=== PATIENT | male | born 1955 | race Caucasian/White ===

== ENCOUNTER 2024-08-26 02:38 | Outpatient (CLI) | payer MEDICARE, MEDICAID, SELFPAY ==
[2024-08-26 10:39] LABS: Abs Immature Grans 0.08 10^3/uL (0.0-0.06); Absolute Basophil Count 0.14 10^3/uL (0.0-0.2); Absolute Lymphocyte Count 3.56 10^3/uL (1.2-3.4); Absolute Monocyte Count 1.41 10^3/uL (0.1-0.8); Basophils % 1.1 %; Eosinophils % 1.5 %; HCT 35.6 % (40.0-50.0); HGB 11.8 g/dL (13.5-17.5); Immature Grans % 0.6 %; Lymphocytes % 28.8 %; MCH 29.1 pg (27.0-33.0); MCHC 33.1 % (32.0-36.0); MCV 88 fL (80-95); MPV 8.6 fL (8.0-11.0); Monocytes % 11.4 %; Neutrophils % 56.6 %; Platelet Count 358 10^3/uL (130-400); RBC 4.05 10^6/uL (4.36-5.78); RDW 15.1 % (11.8-14.1); RDW-SD 48.2 fL; WBC 12.35 10^3/uL (4.4-10.8)
[2024-08-26 10:49] LABS: Absolute Eosinophil Count 0.19 10^3/uL (0.0-0.7); Absolute Neutrophil Count 6.99 10^3/uL (1.2-6.7)
[2024-08-26 11:02] LABS: ALT 52 U/L (16-63); AST 25 U/L (15-37); Albumin 3.4 g/dL (3.4-5.0); Alkaline Phosphatase 99 U/L (46-116); Anion Gap 2.6 mmol/L (3-11); BUN 11 mg/dL (7-18); Bilirubin, Total 0.4 mg/dL (0.2-1.0); CO2 32.4 mmol/L (21.0-32.0); CREATININE 0.6 mg/dL (0.70-1.30); Calcium 9.2 mg/dL (8.5-10.1); Chloride 100 mmol/L (98-107); Estimated GFR 105.15 (mL/min/1.73m2); Glucose 96 mg/dL (74-106); Magnesium 1.7 mg/dL (1.8-2.4); Potassium 3.8 mmol/L (3.5-5.1); Sodium 135 mmol/L (136-145)
== END 2024-08-26 02:39 | disposition home or self-care (01) ==
LOC: LBO 02:38
PROVIDERS: Visit Provider Nurse Practitioner Family
DX: C34.11 Malignant neoplasm of upper lobe, right bronchus or lung (principal)
CPT/HCPCS: 36415; 80053; 83735; 85025

== ENCOUNTER 2024-09-16 03:34 | Outpatient (CLI) | payer MEDICARE, SELFPAY ==
[2024-09-16 07:49] LABS: Abs Immature Grans 0.03 10^3/uL (0.0-0.06); HCT 36.1 % (40.0-50.0); HGB 11.7 g/dL (13.5-17.5); MCH 29.4 pg (27.0-33.0); MCHC 32.4 % (32.0-36.0); MCV 91 fL (80-95); MPV 8.3 fL (8.0-11.0); Platelet Count 264 10^3/uL (130-400); RBC 3.98 10^6/uL (4.36-5.78); RDW 17.4 % (11.8-14.1); RDW-SD 57.1 fL; WBC 8.01 10^3/uL (4.4-10.8)
[2024-09-16 08:07] LABS: ALT 78 U/L (16-63); AST 49 U/L (15-37); Albumin 3.7 g/dL (3.4-5.0); Alkaline Phosphatase 117 U/L (46-116); Anion Gap 6.2 mmol/L (3-11); BUN 9 mg/dL (7-18); Bilirubin, Total 0.4 mg/dL (0.2-1.0); CO2 31.8 mmol/L (21.0-32.0); CREATININE 0.5 mg/dL (0.70-1.30); Calcium 9.1 mg/dL (8.5-10.1); Chloride 101 mmol/L (98-107); Glucose 100 mg/dL (74-106); Magnesium 1.8 mg/dL (1.8-2.4); Potassium 4.2 mmol/L (3.5-5.1); Sodium 139 mmol/L (136-145); Total Protein 7.6 g/dL (6.4-8.2)
[2024-09-16 08:26] LABS: Absolute Basophil Count 0.08 10^3/uL (0.0-0.2); Absolute Eosinophil Count 0.32 10^3/uL (0.0-0.7); Absolute Lymphocyte Count 1.76 10^3/uL (1.2-3.4); Absolute Monocyte Count 1.04 10^3/uL (0.1-0.8); Absolute Neutrophil Count 4.81 10^3/uL (1.2-6.7); Atypical Lymphocytes % 3 %; Diff Comment Manual Differential; RBC Morphology Normal
== END 2024-09-16 03:35 | disposition home or self-care (01) ==
LOC: LBO 03:34
PROVIDERS: Visit Provider Nurse Practitioner Family
DX: C34.11 Malignant neoplasm of upper lobe, right bronchus or lung (principal)
CPT/HCPCS: 36415; 80053; 83735; 85025

== ENCOUNTER 2024-10-01 19:26 | Outpatient (REF) | payer MEDICARE, SELFPAY | END 2024-10-01 19:27 | disposition home or self-care (01) | LOC: LBN 19:26 | PROVIDERS: Student in an Organized Health Care Education/Training Program; Visit Provider Nurse Practitioner Family | DX: R91.8 Other nonspecific abnormal finding of lung field (principal) | CPT/HCPCS: 87116; 87206 ==

== ENCOUNTER 2024-10-02 10:26 | Outpatient (REF) | payer MEDICARE, SELFPAY | END 2024-10-02 10:27 | disposition home or self-care (01) | LOC: LBN 10:26 | PROVIDERS: Student in an Organized Health Care Education/Training Program; Visit Provider Nurse Practitioner Family | DX: R91.8 Other nonspecific abnormal finding of lung field (principal) | CPT/HCPCS: 87116; 87206 ==

== ENCOUNTER 2024-10-06 03:38 | Outpatient (CLI) | payer MEDICARE, SELFPAY ==
[2024-10-06 08:41] LABS: Abs Immature Grans 0.01 10^3/uL (0.0-0.06); HCT 30.7 % (40.0-50.0); HGB 10.4 g/dL (13.5-17.5); Immature Grans % 0.3 %; MCH 31.8 pg (27.0-33.0); MCHC 33.9 % (32.0-36.0); MCV 94 fL (80-95); MPV 7.8 fL (8.0-11.0); Platelet Count 262 10^3/uL (130-400); RBC 3.27 10^6/uL (4.36-5.78); RDW 20.1 % (11.8-14.1); RDW-SD 69.5 fL; WBC 3.05 10^3/uL (4.4-10.8)
[2024-10-06 09:03] LABS: Anisocytosis 2+
[2024-10-06 09:06] LABS: ALT 65 U/L (16-63); AST 42 U/L (15-37); Albumin 3.6 g/dL (3.4-5.0); Alkaline Phosphatase 82 U/L (46-116); Anion Gap 6.8 mmol/L (3-11); BUN 7 mg/dL (7-18); Bilirubin, Total 0.4 mg/dL (0.2-1.0); CO2 32.2 mmol/L (21.0-32.0); Calcium 9.2 mg/dL (8.5-10.1); Chloride 100 mmol/L (98-107); Estimated GFR 118.84 (mL/min/1.73m2); Glucose 116 mg/dL (74-106); Magnesium 1.8 mg/dL (1.8-2.4); Potassium 3.7 mmol/L (3.5-5.1); Sodium 139 mmol/L (136-145); Total Protein 7.2 g/dL (6.4-8.2)
== END 2024-10-06 03:39 | disposition home or self-care (01) ==
LOC: LBO 03:38
PROVIDERS: Visit Provider Nurse Practitioner Family
DX: C34.11 Malignant neoplasm of upper lobe, right bronchus or lung (principal)
CPT/HCPCS: 36415; 80053; 83735; 85025

== ENCOUNTER 2024-10-06 12:36 | Outpatient (REF) | payer MEDICARE, SELFPAY | END 2024-10-06 12:37 | disposition home or self-care (01) | LOC: LBN 12:36 | PROVIDERS: Student in an Organized Health Care Education/Training Program; Visit Provider Nurse Practitioner Family | DX: R91.8 Other nonspecific abnormal finding of lung field (principal) | CPT/HCPCS: 87116; 87206 ==

== ENCOUNTER 2024-10-08 13:47 | Emergency (ER) | payer MEDICARE, MEDICAID, SELFPAY ==
--- NOTE | 2024-10-08 13:30 | RT.EKG_ITS ---
APPROVED REPORT Exam: Resting ECG Reason for Exam: Chest Pressure Patient Location: E HR:111 bpm ECG Measurements Heart Rate 111 AXIS WV 217 P 57 QRSd 91 QRS 61 QT 313 T 62 QTc 426 Conclusion Sinus tachycardia [address] BLOCK NO STEMI
[2024-10-08 13:43] VITALS: BP 134/84; PULSE 116; RESP 16; TEMP 36.8; O2SAT 98
--- NOTE | 2024-10-08 14:21 | W.ED.GENAD ---
Discharge Plan Disposition Patient Disposition: Home Condition: Good Discharge Details Clinical Impression: Contusion of right shoulder Primary Care Provider: Unknown,Unknown ED Provider: Kristi Wick Discharge Instructions Instructions: Acute Pain, Adult (DC) Additional Instructions: As we discussed, your x-ray is reassuring here today. I am worried about how many flights of stairs you have to go up. I encourage you to really take your time and catch her breath. I have made a referral to palliative care to see if they can assist you with any of your symptoms while you continue with your chemo and radiation. Please continue to follow-up with your oncology team as previously recommended. If you develop any new or worsening symptoms please seek care urgently once again. Follow-up with primary care in 2 weeks for reevaluation. HPI General Date/Time Provider Initiated Documentation: 10/08/24 14:21. Limitations to Documentation: no limitations. Information obtained by: patient and RN notes reviewed. History of Present Illness 69 year old M presents to the emergency department with the chief complaint of Right shoulder pain after fall, also struck right wrist and right knee, described as mild, Quality is described as aching, and is localized to the right and upper extremity. Patient reports no radiation. Patient started experiencing this minute(s) and it has been now resolved. Immobilization improves symptom(s), Movement worsens symptoms . Patient notes no other symptoms.. Patient did receive the following treatments prior to arrival, none General Stated Complaint: Fall/Non TraumaCriteria MIKAELA: 3 Review of Systems Constitutional Constitutional: Reports as per HPI, Denies chills, Denies fever(s), Denies headache(s) and Denies weakness ENT Ears, Nose, Mouth, and Throat: Denies headache(s) Cardiovascular Cardiovascular: Reports as per HPI, Denies chest pain and Reports dyspnea (Chronic associated with small cell lung cancer) Respiratory Respiratory: Reports as per HPI and Reports dyspnea (Chronic associated with small cell lung cancer) Musculoskeletal Musculoskeletal: Reports as per HPI and Denies tingling Integumentary/Breasts Skin/Breast: Reports as per HPI, Denies rash and Denies wounds Neurologic Neurologic: Reports as per HPI, Denies headache(s), Denies tingling, Denies paresthesias and Denies weakness Exam Const General: cooperative, comfortable, no acute distress, well developed, well groomed and ill appearing chronically Nutritional Appearance: average body habitus and well nourished Orientation: alert and awake [facility] Head: normal to inspection, normocephalic and atraumatic Neck Neck: normal visual inspection and full ROM Chest Chest: normal inspection of the chest, normal palpation of entire chest wall, no crepitus and no tenderness Resp Effort & Inspection: normal respiratory effort, able to speak in complete sentences and no respiratory distress Auscultation: clear to auscultation bilaterally Cardio Rate: regular rate Rhythm: regular rhythm Heart Sounds: S1 normal and S2 normal GI Inspection: normal to inspection Palpation: soft and nontender Back/Spine/Pelvis Cervical Spine: normal cervical lordosis, cervical ROM normal and No cervical spinal tenderness Pelvis: no pain with anterior-posterior compression and no pain with lateral compression Skin General skin exam: no rashes or lesions noted Lesions: no lesions Rashes: no rashes Trauma: no lacerations or abrasions Neuro General: patient alert and patient awake Cognition: normal cognition Speech: speech normal Motor: muscle tone normal throughout Sensory Exam: no sensory deficits noted Extrem Shoulder/upper arm images:  1. Area of maximal discomfort over the right AC joint. He has 2+ distal pulses. Full range of motion of the elbow, wrist, hand. As indicates the ulnar side of the right wrist is area of contusion but no continued discomfort, swelling or limitation range of motion. 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 No pain with range of motion of the elbow. He has negative speeds sign. No pain elsewhere about the shoulder. No ecchymosis or discoloration. Sensation is intact over the deltoid. Knee images:  1. Indicates this area is where he struck when he fell. He has 2+ distal pulses. Full range of motion of the knee. No ecchymosis, erythema, effusion or soft tissue swelling. Ligamentously intact. No continued pain, no pain with palpation. Psych Appearance: grossly normal and well kempt Mental Status: mental status grossly normal Speech and Movement: speech and movement normal Course Vital Signs Vital signs: Vital Signs Temperature 36.8 C 10/08/24 13:43 Pulse 116 H 10/08/24 13:43 Respiratory Rate 16 10/08/24 13:43 Blood Pressure 134/84 10/08/24 13:43 Pulse Oximetry 98 10/08/24 13:43 Temperature 36.8 C 10/08/24 13:43 Temperature Source Oral 10/08/24 13:43 Pulse 116 H 10/08/24 13:43 Respiratory Rate 16 10/08/24 13:43 Blood Pressure 134/84 10/08/24 13:43 Pulse Oximetry 98 10/08/24 13:43 Oxygen Delivery Method Room Air 10/08/24 13:43 Oxygen Flow Rate 0 10/08/24 13:43 Medical Decision Making Patient is a pleasant 69-year-old male past medical history significant for small cell lung cancer, currently undergoing chemo and radiation, presenting with chief complaint of right shoulder pain, wrist pain and knee pain after fall. He reports that he was coming down 3 flights of stairs exiting his apartment when he became slightly short of breath causing him to lose his footing and fall. States that he misstepped falling down 1 step and landing onto the next level. He denies striking his head, no loss of consciousness. Remembers the event. No increasing shortness of breath compared to his baseline. Denies any chest pain. Denies any abdominal pain, nausea or vomiting. No incontinence. Denies striking his back or any continued back pain. Was able to ambulate after the incident. On exam, patient appears chronically unwell but no acute decompensation is appreciated. No signs of cranial trauma. No neck pain, back pain. No change in chest pain with palpation. Patient does report that he would be using his nebulizer normally right now, will give this to him. He states that he does become short of breath associated with the cancer and current treatments and finds this greatly beneficial. He has no pelvic instability. No saddle paresthesias. He does not have any evidence of trauma to the wrist or right knee, full range of motion with no pain with palpation or movement. However, he does have discomfort at the AC joint of the right shoulder. Again, no evidence to suggest objective trauma, no discoloration or swelling. Will obtain an x-ray of this. Patient and I also discussed palliative care referral. X-ray of the patient's right shoulder was reviewed by radiology, no acute fracture or dislocation. Patient is feeling significantly improved after the DuoNeb. He reports that this has been his baseline breathing for some time and he finds that the nebulizers are greatly beneficial. I am concerned about him living alone on the third floor, particularly given his overall weakness and shortness of breath associated with all small cell lung cancer as well as his continued cancer therapies. He reports that he will go slow, uses neighbor to help him. He again, reiterates that there is no acute change in this no concern at this point for acute ACS, PE, dissection to cause any of his shortness of breath. This sounds to be more of a chronic issue that is unchanged from baseline. I did encourage that he continue to discuss this with his oncology team. Referral for palliative care was also placed. Return precautions were discussed. All his questions and concerns were addressed and patient is in agreement with this plan. PFSH All Active Problems (Updated 10/08/24 @ 16:26 by GRAEME Hendrix) Contusion of right shoulder (Acute) Social History Smoking risk assessment performed?: No
--- NOTE | 2024-10-08 14:29 | DI.RAD_ITS ---
Exam(s) XR SHOULDER RT COMPLETE 2+V EXAM: XR SHOULDER RT COMPLETE 2+V CLINICAL HISTORY: fall, anterior pain. TECHNIQUE: 2D digital imaging was performed. COMPARISON: No exams were available for comparison FINDINGS: Five views. No evidence of fracture or dislocation no abnormal soft tissue calcifications. Subacromial space is not diminished. No obvious degenerative changes in the glenohumeral joint. Mild changes in the AC joint. No clavicle fracture. Coracoid process is intact. No adjacent rib fractures. IMPRESSION: No acute osseous findings in the right shoulder. DATA REPOSITORY: RADIATION DOSE DELIVERED:
[2024-10-08] MEDS: Albuterol/Ipratropium 3 ML UPD VIAL UPD (14:58)
[2024-10-08 16:42] VITALS: BP 163/112; PULSE 114; TEMP 37; O2SAT 93
[2024-10-08 16:44] VITALS: BP 134/84; PULSE 116; RESP 16; TEMP 36.8; O2SAT 98
== END 2024-10-08 16:45 | disposition home or self-care (01) ==
PROVIDERS: Emergency Provider Physician Assistant
DX: S40.011A Contusion of right shoulder, initial encounter (principal); W10.8XXA Fall (on) (from) other stairs and steps, initial encounter; R06.02 Shortness of breath; Z85.118 Personal history of other malignant neoplasm of bronchus and lung
CPT/HCPCS: 99283 ×2; 94640; 93005; 73030; 93010; J7620

== ENCOUNTER 2024-10-27 03:53 | Outpatient (CLI) | payer MEDICARE, MEDICAID, SELFPAY ==
[2024-10-27 07:45] LABS: Abs Immature Grans 0.06 10^3/uL (0.0-0.06); HCT 32.7 % (40.0-50.0); HGB 10.7 g/dL (13.5-17.5); Immature Grans % 1.4 %; MCH 31.6 pg (27.0-33.0); MCHC 32.7 % (32.0-36.0); MCV 97 fL (80-95); MPV 7.7 fL (8.0-11.0); Platelet Count 392 10^3/uL (130-400); RBC 3.39 10^6/uL (4.36-5.78); RDW 18.1 % (11.8-14.1); RDW-SD 64.0 fL; WBC 4.15 10^3/uL (4.4-10.8)
[2024-10-27 08:02] LABS: ALT 35 U/L (16-63); AST 20 U/L (15-37); Albumin 3.5 g/dL (3.4-5.0); Alkaline Phosphatase 70 U/L (46-116); Anion Gap 9.3 mmol/L (3-11); BUN 9 mg/dL (7-18); Bilirubin, Total 0.2 mg/dL (0.2-1.0); CO2 30.7 mmol/L (21.0-32.0); Calcium 9.3 mg/dL (8.5-10.1); Chloride 99 mmol/L (98-107); Estimated GFR 105.15 (mL/min/1.73m2); Glucose 97 mg/dL (74-106); Magnesium 1.7 mg/dL (1.8-2.4); Potassium 3.6 mmol/L (3.5-5.1); Sodium 139 mmol/L (136-145); Total Protein 7.2 g/dL (6.4-8.2)
== END 2024-10-27 03:54 | disposition home or self-care (01) ==
LOC: LBO 03:53
PROVIDERS: Visit Provider Nurse Practitioner Family
DX: C34.11 Malignant neoplasm of upper lobe, right bronchus or lung (principal)
CPT/HCPCS: 36415; 80053; 83735; 85025

== ENCOUNTER 2024-10-27 09:07 | Emergency (ER) | payer MEDICARE, MEDICAID, SELFPAY ==
[2024-10-27 09:08] VITALS: BP 172/101; PULSE 106; RESP 16; TEMP 36.9; O2SAT 96
[2024-10-27 09:19] VITALS: BP 172/101; PULSE 106; RESP 16; TEMP 36.9; O2SAT 96
--- NOTE | 2024-10-27 09:25 | DI.CT_ITS ---
Exam(s) CT ABDOMEN PELVIS W EXAM: CT ABDOMEN PELVIS W xa CLINICAL HISTORY: upper abdominal pain, n/v. TECHNIQUE: Imaging Protocol: Axial computed tomography images with coronal and sagittal reformatted images were created and reviewed CONTRAST MATERIAL: Intravenous: Omnipaque-350 100cc Oral: None COMPARISON: No exams were available for comparison FINDINGS: VISUALIZED LUNG BASES: Mild increased markings in the left lower lobe posterior basal segment noted. There are no pleural effusions.. ABDOMEN: There is no ascites. LIVER: There is a small benign-appearing cyst in the right hepatic lobe measuring 8 mm. No other significant focal findings in the liver. No steatosis. No dilated intrahepatic ducts. GALLBLADDER/BILIARY: No obvious gallbladder pathology. CBD is not dilated. PANCREAS: No evidence of pancreatic mass nor dilatation of the pancreatic duct. SPLEEN: Spleen is not enlarged. No obvious intrasplenic lesions. Splenic and portal veins are patent. ADRENALS: There are no significant adrenal masses. KIDNEYS:No cysts evident. No solid renal masses. No calculi nor hydronephrosis.. ABDOMINAL AORTA: Calcified but not enlarged. Iliac arteries also calcified but not enlarged. LYMPH NODES:There is no retroperitoneal nor paraaortic adenopathy. ABDOMINAL WALL: No evidence of anterior abdominal wall hernia. Density at the level the right internal inguinal ring noted which may be related to prior inguinal hernia repair. Similar finding is not seen on the opposite-left side. GI: Abundant fecal material in the colon. PELVIS: GI: No evidence of appendicitis.Redundant sigmoid. No obvious diverticulitis. LYMPH NODES: There is no intrapelvic nor inguinal adenopathy. REPRODUCTIVE: Mildly enlarged prostate gland which indents the bladder base. URINARY BLADDER: Bladder wall is uniformly thickened probably related to chronic outlet obstruction or chronic cystitis. OSSEOUS: No fractures and no significant osseous lesions. IMPRESSION: 1. There is subtle infiltrate in the left lower lobe posterior basal segment. Tree in bud-type. No associated pleural effusion. 2. There is abundant fecal material noted throughout the colon-probable constipation. Also fecal filled redundant sigmoid evident. Small bowel loop diameters slightly prominent, probably related to the constipation. 3. Moderately enlarged prostate gland and uniform thickening of the urinary bladder wall. There is moderate distension of the urinary bladder. 4. Abnormal density at the level the right inguinal ring which is possibly related to prior inguinal hernia surgery. Findings called by myself to ER physician 10/27/2024 at 10:20 a.m. RADIATION DOSE DELIVERED: 334.09mGy.cm Total DLP DATA REPOSITORY: All CT scans at this facility are submitted to the National Radiology Data Registry (NRDR) Dose Index Registry (DIR) with the [employer] (A[employer]). RADIATION OPTIMIZATION: All CT scans at this facility use at least one of these dose optimization techniques: automated exposure control; mA and/or kV adjustment per patient size (includes targeted exams where dose is matched to clinical indication); or iterative reconstruction.
--- NOTE | 2024-10-27 09:26 | RT.EKG_ITS ---
APPROVED REPORT Exam: Resting ECG Reason for Exam: chest qtc Patient Location: E HR:83 bpm ECG Measurements Heart Rate 83 AXIS UT 246 P 62 QRSd 105 QRS 19 QT 360 T 57 QTc 424 Conclusion Sinus rhythm...normal P axis, V-rate 60- 99 Prolonged UT interval...UT >220, V-rate 50- 90 Consider anteroseptal infarct...Q >30mS, dimin R, V1-V2
--- NOTE | 2024-10-27 09:27 | W.ED.GENAD ---
Discharge Plan Disposition Patient Disposition: Home Condition: Stable Discharge Details Clinical Impression: Abdominal pain, Constipation, Lung infiltrate Primary Care Provider: Unknown,Unknown ED Provider: Dajuan Shultz Home Meds and New Rx's Prescriptions: New doxycycline hyclate 100 mg tablet 100 mg PO BID Qty: 14 0RF Continued multivitamin [Daily Multi-Vitamin] Tablet 1 tab PO DAILY quetiapine 25 mg tablet 25 mg PO DAILY carvedilol 12.5 mg tablet 12.5 mg PO BID Rx Instructions: must administer with a meal/food ipratropium-albuterol 0.5 mg-3 mg(2.5 mg base)/3 mL solution for nebulization 3 ml inhalation Q6H PRN prochlorperazine maleate [Compazine] 10 mg tablet 10 mg PO Q6H PRN lorazepam 0.5 mg tablet 0.5 mg PO DAILY PRN amlodipine 10 mg tablet 10 mg PO DAILY hydroxyzine HCl 25 mg tablet 25 mg PO TID PRN albuterol sulfate [Ventolin HFA] 90 mcg/actuation HFA aerosol inhaler 2 puff inhalation Q4H PRN food supplemt, lactose-reduced Liquid 1 ml PO BID varenicline tartrate [Chantix] 1 mg tablet 1 mg PO BID Trelegy Ellipta 200-62.5-25 mcg blister with device 1 inh inhalation DAILY prednisone 5 mg tablet 5 mg PO DAILY budesonide-formoterol [Symbicort] 160-4.5 mcg/actuation HFA aerosol inhaler 1 inh inhalation .COMPLEX Rx Instructions: 1 inh inhaled take by mouth 1-2 puffs every four hours, up to a maximum of 12 puffs daily (not to exceed more than 12 puffs in 24 hours), as needed for shortness of breath. Per URIAH guidelines.; Ensure Plus 0.05 gram- 1.5 kcal/mL liquid 237 ml PO BID Rx Instructions: Take 237 mLs by mouth 2 times daily. Chocolate Ensure Plus-2 bottles per day diazepam [Valium] 5 mg tablet 5 mg PO ONCE PRN ondansetron 8 mg tablet,disintegrating 8 mg PO ONCE PRN Discharge Instructions Additional Instructions: Your CAT scan showed you have a modest stool in your bowels. I would recommend taking daily stool softener such as docusate and also taking MiraLAX daily. Your CT also showed some evidence of a possible lung infection so you are being put on doxycycline. If you are not improving within a week follow-up with your primary care provider. If you feel significantly more ill or have new symptoms such as persistent vomiting return to the emergency department for reevaluation HPI General Mode of arrival: EMS. Date/Time Provider Initiated Documentation: 10/27/24 09:15. Limitations to Documentation: no limitations. Information obtained by: patient. History of Present Illness 69 year old M presents to the emergency department with the chief complaint of abdominal pain, described as moderate, Quality is described as sharp, and is localized to the abdomen. Patient reports no radiation. and it has been constant. No relieving factors improve symptom(s), No exacerbating factors reported . Patient notes nausea/vomiting; denies chest pain, fever/chills and shortness of breath. Patient did receive the following treatments prior to arrival, none Related Data Home Medications ?Medication ?Instructions ?Recorded ?Confirmed albuterol sulfate 90 mcg/actuation 2 puff inhalation Q4H PRN 10/14/24 10/27/24 aerosol inhaler (Ventolin HFA) amlodipine 10 mg tablet 10 mg PO DAILY 10/14/24 10/27/24 carvedilol 12.5 mg tablet 12.5 mg PO BID 10/14/24 10/27/24 fluticasone fur. 200 mcg-umeclid 1 inh inhalation DAILY 10/14/24 10/27/24 62.5 mcg-vilant 25 mcg inhalat.powder (Trelegy Ellipta) food supplemt, lactose-reduced 1 ml PO BID 10/14/24 10/27/24 hydroxyzine HCl 25 mg tablet 25 mg PO TID PRN 10/14/24 10/27/24 ipratropium 0.5 mg-albuterol 3 mg 3 ml inhalation Q6H PRN 10/14/24 10/27/24 (2.5 mg base)/3 mL nebulization soln lorazepam 0.5 mg tablet 0.5 mg PO DAILY PRN 10/14/24 10/27/24 multivitamin (Daily Multi-Vitamin 1 tab PO DAILY 10/14/24 10/27/24 tablet) prednisone 5 mg tablet 5 mg PO DAILY 10/14/24 10/27/24 prochlorperazine maleate 10 mg 10 mg PO Q6H PRN 10/14/24 10/27/24 tablet (Compazine) quetiapine 25 mg tablet 25 mg PO DAILY 10/14/24 10/27/24 varenicline tartrate 1 mg tablet 1 mg PO BID 10/14/24 10/27/24 (Chantix) budesonide-formoterol HFA 160 1 inh inhalation .COMPLEX 10/17/24 10/27/24 mcg-4.5 mcg/actuation aerosol inhaler (Symbicort) diazepam 5 mg tablet (Valium) 5 mg PO ONCE PRN 10/17/24 10/27/24 food supplemt, lactose-reduced 237 ml PO BID 10/17/24 10/27/24 0.05 gram-1.5 kcal/mL oral liquid (Ensure Plus) doxycycline hyclate 100 mg tablet 100 mg PO BID #14 tabs 10/27/24 ondansetron 8 mg disintegrating 8 mg PO ONCE PRN 10/27/24 10/27/24 tablet Previous Rx's ?Medication ?Instructions ?Recorded doxycycline hyclate 100 mg tablet 100 mg PO BID #14 tabs 10/27/24 Allergies Allergy/AdvReac Type Severity Reaction Status Date / Time Penicillins Allergy Severe Anaphylaxis Verified 10/27/24 09:13 Sulfa (Sulfonamide Allergy Severe Anaphylaxis Verified 10/27/24 09:13 Antibiotics) lactose Allergy NVD Verified 10/27/24 09:13 General Stated Complaint: Abd Prob MIKAELA: 3 Review of Systems All systems reviewed & are unremarkable except as noted in HPI and below Constitutional Constitutional: Denies chills, Denies fever(s) and Denies weakness Cardiovascular Cardiovascular: Denies chest pain and Denies dyspnea Respiratory Respiratory: Denies cough and Denies dyspnea Gastrointestinal Gastrointestinal: Reports abdominal pain, Reports nausea and Reports vomiting Neurologic Neurologic: Denies weakness Exam Const General: no acute distress Orientation: alert HENMT Head: normal to inspection Ears: external ears normal General nose exam: external nose normal Mouth: moist mucous membranes Eyes General: appearance normal, both eyes and all related structures Neck Neck: normal visual inspection Resp Effort & Inspection: normal respiratory effort and able to speak in complete sentences Cardio Rate: regular rate GI Palpation: soft and tender Skin General skin exam: no rashes or lesions noted Neuro General: patient alert and patient oriented x3 Extrem General: normal to inspection Psych Mental Status: mental status grossly normal Course Vital Signs Vital signs: Vital Signs Temperature 36.9 C 10/27/24 09:08 Pulse 106 H 10/27/24 09:08 Respiratory Rate 16 10/27/24 09:08 Blood Pressure 172/101 H 10/27/24 09:08 Pulse Oximetry 96 10/27/24 09:08 Temperature 36.9 C 10/27/24 09:19 Temperature Source Oral 10/27/24 09:19 Pulse 106 H 10/27/24 09:19 Respiratory Rate 16 10/27/24 09:19 Blood Pressure 172/101 H 10/27/24 09:19 Blood Pressure Position Sitting 10/27/24 09:19 Pulse Oximetry 96 10/27/24 09:19 Oxygen Delivery Method Room Air 10/27/24 09:19 Oxygen Flow Rate 0 10/27/24 09:19 Pain Level 9 10/27/24 09:19 Medical Decision Making 69-year-old male with a history of lung cancer currently getting chemotherapy, hypertension, who comes in with 2 to 3 days of abdominal pain primarily in the upper abdomen and intermittent nausea vomiting. Denies any fevers or chest pain. He is alert and oriented on arrival. His abdomen is nondistended but is tender in the left upper and right upper quadrants. Given location of pain we will check a CBC CMP and lipase and also obtain a CT abdomen pelvis to evaluate for entities such as cholecystitis versus bowel obstruction. Labs without significant findings, no significant anemia from baseline. He is feeling significantly better, CT without acute findings and the question of a left lower lobe infiltrate. He says he does have a daily cough but is not sure if it is worse than normal. No fevers. He does have a lot of stool in his bowels which I feel is likely the source of his discomfort. I am going to start him on a stool softener and a laxative. I also started him on doxycycline for the infiltrate seen on the CT. He is stable for discharge he will follow-up with his PCP in improving and return precautions given Differential Diagnosis Differential Diagnosis: Bowel obstruction, cholecystitis ECG Data Attestation: I personally reviewed and interpreted this ECG (s) as follows: Prior ECG tracings: available for review Interpretation: ekg obtained to check qtc for droperidol. sinus, rate of 83, qtc 424 no stemi PFSH All Active Problems (Updated 07/28/25 @ 10:43 by Dajuan Shultz MD) Lung infiltrate (Acute) Constipation (Acute) Abdominal pain (Acute) Other nonspecific abnormal finding of lung field (Acute) Housing insecurity (Acute) Financial insecurity (Acute) History of alcohol abuse (Acute) Hepatitis C (Chronic) Viral load > 800k July 2024 Reports partial treatment with interferon in the past COPD (chronic obstructive pulmonary disease) (Chronic) Smoker (Acute) Small cell lung cancer, right middle lobe (Acute) Dx May 2024 Contusion of right shoulder (Acute) Medical History (Updated 10/27/24 @ 10:43 by Dajuan Shultz MD) Unilateral inguinal hernia Nondependent alcohol abuse Hyponatremia Hypertension Small cell carcinoma of hilum of right lung Protein calorie malnutrition JANI (generalized anxiety disorder) Surgical History (Updated 10/14/24 @ 08:21 by Shira Leiva) History of bronchoscopy Family History (Updated 10/14/24 @ 08:22 by Shira Leiva) Father Colorectal cancer Social History (Updated 10/14/24 @ 08:24 by Shira Leiva) Smoking/Tobacco Use Status: Former Tobacco Use tobacco type: cigarettes Quit Date: 07/21/24 Pack-years: 69 Tobacco: How many years used: 45 Smoking risk assessment performed?: Yes Alcohol Intake: former Year quit: 2024 [place] [facility] [place] - was at 4 cans beer/day Drug use: Daily Substance use type: marijuana Details: marijuana edibles 4x daily for pain [place] [facility] [place] Do you feel safe at home: Yes Do you feel safe in your relationship?: Yes
[2024-10-27 09:34] LABS: Abs Immature Grans 0.08 10^3/uL (0.0-0.06); HCT 35.5 % (40.0-50.0); HGB 11.6 g/dL (13.5-17.5); Immature Grans % 1.7 %; MCH 31.6 pg (27.0-33.0); MCHC 32.7 % (32.0-36.0); MCV 97 fL (80-95); MPV 8.0 fL (8.0-11.0); Platelet Count 451 10^3/uL (130-400); RBC 3.67 10^6/uL (4.36-5.78); RDW 18.0 % (11.8-14.1); RDW-SD 64.2 fL; WBC 4.77 10^3/uL (4.4-10.8)
[2024-10-27] MEDS: Omnipaque 350 MG/ML 100 ML BTL 75 ML IJ (09:46)
[2024-10-27] MEDS: Normal Saline - Diluent 50 ML VIAL IJ (09:49)
[2024-10-27 09:56] LABS: INR 1.1 (0.9-1.1); Prothrombin Time 10.9 sec (9.1-11.1)
[2024-10-27 10:01] LABS: ALT 36 U/L (16-63); AST 21 U/L (15-37); Albumin 3.7 g/dL (3.4-5.0); Alkaline Phosphatase 73 U/L (46-116); Anion Gap 6.4 mmol/L (3-11); BUN 8 mg/dL (7-18); Bilirubin, Direct 0.1 mg/dL (0.0-0.2); Bilirubin, Total 0.2 mg/dL (0.2-1.0); CO2 33.6 mmol/L (21.0-32.0); Calcium 9.5 mg/dL (8.5-10.1); Chloride 98 mmol/L (98-107); Estimated GFR 105.15 (mL/min/1.73m2); Glucose 95 mg/dL (74-106); Lipase 30 U/L (<78); Magnesium 1.7 mg/dL (1.8-2.4); Potassium 3.4 mmol/L (3.5-5.1); Sodium 138 mmol/L (136-145); Total Protein 7.7 g/dL (6.4-8.2)
[2024-10-27 10:09] LABS: PTT Activated 25.3 sec (20.6-30.2)
[2024-10-27 10:10] VITALS: BP 158/96; PULSE 88; O2SAT 95
[2024-10-27] MEDS: Droperidol 5 MG/2 ML VIAL 2.5 MG IVP (10:20)
[2024-10-27] MEDS: Ketorolac 15 MG/ML VIAL IVP (10:21)
[2024-10-27 10:31] VITALS: BP 144/88; PULSE 94; O2SAT 90
[2024-10-27 10:34] LABS: Glucose Negative (Negative)
[2024-10-27 11:00] VITALS: BP 141/88; PULSE 84; O2SAT 92
== END 2024-10-27 11:13 | disposition home or self-care (01) ==
PROVIDERS: Emergency Provider Emergency Medicine
DX: R10.9 Unspecified abdominal pain (principal); K59.00 Constipation, unspecified; R91.8 Other nonspecific abnormal finding of lung field; R11.2 Nausea with vomiting, unspecified
CPT/HCPCS: 99285; 99284; 96374; 96375; 36415; 80053; 83690; 86850; 86900; 86901; 93005; 74177; 81003; 82248; 83735; 85025; 85610; 85730; 93010; J1790; J1885; J3490

== ENCOUNTER 2024-11-03 03:27 | Outpatient (CLI) | payer MEDICARE, MEDICAID, SELFPAY ==
[2024-11-03 07:55] LABS: Abs Immature Grans 0.04 10^3/uL (0.0-0.06); HCT 32.2 % (40.0-50.0); HGB 10.6 g/dL (13.5-17.5); Immature Grans % 0.5 %; MCH 32.1 pg (27.0-33.0); MCHC 32.9 % (32.0-36.0); MCV 98 fL (80-95); MPV 7.8 fL (8.0-11.0); Platelet Count 311 10^3/uL (130-400); RBC 3.30 10^6/uL (4.36-5.78); RDW 18.1 % (11.8-14.1); RDW-SD 65.1 fL; WBC 8.23 10^3/uL (4.4-10.8)
[2024-11-03 08:17] LABS: ALT 63 U/L (16-63); AST 54 U/L (15-37); Albumin 3.8 g/dL (3.4-5.0); Alkaline Phosphatase 73 U/L (46-116); Anion Gap 6.4 mmol/L (3-11); BUN 9 mg/dL (7-18); Bilirubin, Total 0.2 mg/dL (0.2-1.0); CO2 32.6 mmol/L (21.0-32.0); Calcium 9.2 mg/dL (8.5-10.1); Chloride 101 mmol/L (98-107); Estimated GFR 100.37 (mL/min/1.73m2); Glucose 99 mg/dL (74-106); Magnesium 1.8 mg/dL (1.8-2.4); Potassium 4.2 mmol/L (3.5-5.1); Sodium 140 mmol/L (136-145); Total Protein 7.4 g/dL (6.4-8.2)
[2024-11-03 10:36] LABS: TSH 0.65 uIU/mL (0.36-3.74)
== END 2024-11-03 03:28 | disposition home or self-care (01) ==
LOC: LBO 03:27
PROVIDERS: Nurse Practitioner Adult Health; Visit Provider Nurse Practitioner Family
DX: C34.11 Malignant neoplasm of upper lobe, right bronchus or lung (principal); Z79.899 Other long term (current) drug therapy
CPT/HCPCS: 36415; 80053; 83735; 84439; 84443; 85025

== ENCOUNTER 2024-12-02 09:58 | Outpatient (CLI) | payer MEDICARE, MEDICAID, SELFPAY ==
[2024-12-02 08:57] LABS: Abs Immature Grans 0.05 10^3/uL (0.0-0.06); HCT 37.2 % (40.0-50.0); HGB 12.3 g/dL (13.5-17.5); Immature Grans % 0.5 %; MCH 32.5 pg (27.0-33.0); MCHC 33.1 % (32.0-36.0); MCV 98 fL (80-95); MPV 8.2 fL (8.0-11.0); Platelet Count 255 10^3/uL (130-400); RBC 3.79 10^6/uL (4.36-5.78); RDW 14.5 % (11.8-14.1); RDW-SD 52.5 fL; WBC 9.75 10^3/uL (4.4-10.8)
[2024-12-02 09:33] LABS: ALT 63 U/L (16-63); AST 47 U/L (15-37); Albumin 3.7 g/dL (3.4-5.0); Alkaline Phosphatase 95 U/L (46-116); Anion Gap 7.9 mmol/L (3-11); BUN 10 mg/dL (7-18); Bilirubin, Total 0.3 mg/dL (0.2-1.0); CO2 30.1 mmol/L (21.0-32.0); Calcium 9.2 mg/dL (8.5-10.1); Chloride 101 mmol/L (98-107); Estimated GFR 105.15 (mL/min/1.73m2); Glucose 92 mg/dL (74-106); Potassium 4.1 mmol/L (3.5-5.1); Sodium 139 mmol/L (136-145); TSH 0.92 uIU/mL (0.36-3.74); Total Protein 7.8 g/dL (6.4-8.2)
== END 2024-12-02 09:59 | disposition home or self-care (01) ==
LOC: LBO 09:58
PROVIDERS: Visit Provider Nurse Practitioner Adult Health
DX: Z79.899 Other long term (current) drug therapy (principal)
CPT/HCPCS: 36415; 80053; 84439; 84443; 85025

== ENCOUNTER 2024-12-29 04:09 | Outpatient (CLI) | payer MEDICARE, MEDICAID, SELFPAY ==
[2024-12-29 08:31] LABS: Abs Immature Grans 0.03 10^3/uL (0.0-0.06); HCT 36.9 % (40.0-50.0); HGB 12.0 g/dL (13.5-17.5); Immature Grans % 0.3 %; MCH 31.5 pg (27.0-33.0); MCHC 32.5 % (32.0-36.0); MCV 97 fL (80-95); MPV 7.9 fL (8.0-11.0); Platelet Count 265 10^3/uL (130-400); RBC 3.81 10^6/uL (4.36-5.78); RDW 13.3 % (11.8-14.1); RDW-SD 47.7 fL; WBC 9.08 10^3/uL (4.4-10.8)
[2024-12-29 09:21] LABS: ALT 34 U/L (16-63); AST 26 U/L (15-37); Albumin 3.4 g/dL (3.4-5.0); Alkaline Phosphatase 77 U/L (46-116); Anion Gap 7.5 mmol/L (3-11); BUN 13 mg/dL (7-18); Bilirubin, Total 0.4 mg/dL (0.2-1.0); CO2 29.5 mmol/L (21.0-32.0); Calcium 9.4 mg/dL (8.5-10.1); Chloride 100 mmol/L (98-107); Estimated GFR 111.10 (mL/min/1.73m2); Glucose 95 mg/dL (74-106); Magnesium 2.1 mg/dL (1.8-2.4); Potassium 4.1 mmol/L (3.5-5.1); Sodium 137 mmol/L (136-145); TSH 0.79 uIU/mL (0.36-3.74); Total Protein 7.8 g/dL (6.4-8.2)
== END 2024-12-29 04:10 | disposition home or self-care (01) ==
LOC: LBO 04:09
PROVIDERS: Visit Provider Nurse Practitioner Adult Health
DX: Z79.899 Other long term (current) drug therapy (principal); C34.01 Malignant neoplasm of right main bronchus; C34.11 Malignant neoplasm of upper lobe, right bronchus or lung
CPT/HCPCS: 36415; 80053; 83735; 84439; 84443; 85025

== ENCOUNTER 2025-02-10 00:43 | Outpatient (CLI) | payer MEDICARE, MEDICAID, SELFPAY ==
[2025-02-10 09:13] LABS: Abs Immature Grans 0.03 10^3/uL (0.0-0.06); HCT 39.3 % (40.0-50.0); HGB 12.8 g/dL (13.5-17.5); Immature Grans % 0.3 %; MCH 31.1 pg (27.0-33.0); MCHC 32.6 % (32.0-36.0); MCV 96 fL (80-95); MPV 8.0 fL (8.0-11.0); Platelet Count 381 10^3/uL (130-400); RBC 4.11 10^6/uL (4.36-5.78); RDW 13.6 % (11.8-14.1); RDW-SD 48.1 fL; WBC 10.35 10^3/uL (4.4-10.8)
[2025-02-10 09:41] LABS: ALT 17 U/L (16-63); AST 13 U/L (15-37); Albumin 3.1 g/dL (3.4-5.0); Alkaline Phosphatase 90 U/L (46-116); Anion Gap 5.2 mmol/L (3-11); BUN 14 mg/dL (7-18); Bilirubin, Total 0.3 mg/dL (0.2-1.0); CO2 33.8 mmol/L (21.0-32.0); Calcium 9.0 mg/dL (8.5-10.1); Chloride 100 mmol/L (98-107); Glucose 76 mg/dL (74-106); Magnesium 2.1 mg/dL (1.8-2.4); Potassium 3.9 mmol/L (3.5-5.1); Sodium 139 mmol/L (136-145); TSH 1.09 uIU/mL (0.36-3.74); Total Protein 7.9 g/dL (6.4-8.2)
== END 2025-02-10 00:44 | disposition home or self-care (01) ==
LOC: LBO 00:43
PROVIDERS: Visit Provider Nurse Practitioner Adult Health
DX: Z79.899 Other long term (current) drug therapy (principal); C34.11 Malignant neoplasm of upper lobe, right bronchus or lung; C34.01 Malignant neoplasm of right main bronchus
CPT/HCPCS: 36415; 80053; 83735; 84439; 84443; 85025

== ENCOUNTER 2025-02-10 11:07 | Outpatient (REF) | payer MEDICARE, MEDICAID, SELFPAY | END 2025-02-10 11:08 | disposition home or self-care (01) | LOC: LBN 11:07 | PROVIDERS: Visit Provider Student in an Organized Health Care Education/Training Program | DX: R91.8 Other nonspecific abnormal finding of lung field (principal) | CPT/HCPCS: 87116; 87206 ==

== ENCOUNTER 2025-02-23 07:46 | Outpatient (CLI) | payer MEDICARE, MEDICAID, SELFPAY | END 2025-02-23 07:47 | disposition home or self-care (01) | PROVIDERS: Visit Provider Internal Medicine Pulmonary Disease | DX: J44.9 Chronic obstructive pulmonary disease, unspecified (principal); J47.9 Bronchiectasis, uncomplicated; Z51.89 Encounter for other specified aftercare | CPT/HCPCS: 94626 ==

== ENCOUNTER 2025-03-10 01:23 | Outpatient (CLI) | payer MEDICARE, MEDICAID, SELFPAY ==
[2025-03-10 09:13] LABS: Abs Immature Grans 0.04 10^3/uL (0.0-0.06); HCT 38.5 % (40.0-50.0); HGB 12.0 g/dL (13.5-17.5); Immature Grans % 0.4 %; MCH 28.9 pg (27.0-33.0); MCHC 31.2 % (32.0-36.0); MCV 93 fL (80-95); MPV 8.6 fL (8.0-11.0); Platelet Count 397 10^3/uL (130-400); RBC 4.15 10^6/uL (4.36-5.78); RDW 14.4 % (11.8-14.1); RDW-SD 48.9 fL; WBC 11.03 10^3/uL (4.4-10.8)
[2025-03-10 09:33] LABS: Magnesium 1.9 mg/dL (1.6-2.6)
[2025-03-10 09:35] LABS: ALT 12 U/L (10-49); AST 17 U/L (<34); Albumin 4.4 g/dL (3.2-5.0); Alkaline Phosphatase 76 U/L (46-116); Anion Gap 4.8 mmol/L (3-11); BUN 7 mg/dL (9-23); Bilirubin, Total 0.3 mg/dL (0.2-1.2); CO2 34.2 mmol/L (20.0-31.0); Calcium 9.5 mg/dL (8.3-10.6); Chloride 101 mmol/L (98-107); Glucose 100 mg/dL (74-106); Potassium 4.7 mmol/L (3.5-5.1); Sodium 140 mmol/L (136-145); Total Protein 7.7 g/dL (5.7-8.2)
[2025-03-10 09:37] LABS: TSH 1.66 uIU/mL (0.55-4.78)
== END 2025-03-10 01:24 | disposition home or self-care (01) ==
LOC: LBO 01:23
PROVIDERS: Visit Provider Nurse Practitioner Family
DX: Z79.899 Other long term (current) drug therapy (principal); C34.01 Malignant neoplasm of right main bronchus; C34.11 Malignant neoplasm of upper lobe, right bronchus or lung
CPT/HCPCS: 36415; 80053; 83735; 84439; 84443; 85025

== ENCOUNTER 2025-03-10 15:29 | Outpatient (REF) | payer MEDICARE, MEDICAID, SELFPAY | END 2025-03-10 15:30 | disposition home or self-care (01) | LOC: LBN 15:29 | PROVIDERS: Visit Provider Student in an Organized Health Care Education/Training Program | DX: J44.9 Chronic obstructive pulmonary disease, unspecified (principal); F17.210 Nicotine dependence, cigarettes, uncomplicated; J47.9 Bronchiectasis, uncomplicated | CPT/HCPCS: 87116; 87206 ==

== ENCOUNTER 2025-03-27 14:00 | Outpatient (RCR) | payer MEDICARE, MEDICAID, SELFPAY ==
[2025-03-27 14:05] VITALS: BP 143/76; PULSE 110; O2SAT 88
[2025-03-27 14:21] VITALS: PULSE 118; O2SAT 93
[2025-03-27 15:03] VITALS: PULSE 122
[2025-03-27 15:05] VITALS: BP 147/80; PULSE 122; O2SAT 88
[2025-03-27 15:06] VITALS: BP 131/81; PULSE 120; O2SAT 92
--- NOTE | 2025-03-27 16:05 | NUR.NOTE ---
Nursing Note: At 1405 on 03/27/25, pt. arrived for his [place] exercise session and VS were obtained prior to him starting his exercise session. VS: HR: 110; BP: 143/76; O2 Sat.: 88 percent on 2L of oxygen via nasal cannula. Pt. was only able to complete seven minutes of exercise today. Pt. stated that he's having a ...really difficult day. Pt. exercised for four minutes on the Nustep before being noted to desaturate to 83 percent and hold there. RN stopped the pt., and titrated him from 2L to 3L of oxygen via nasal cannula, after which he recovered to between 92-94 percent on 3L of oxygen via nasal cannula. Pt. decided to try another three minutes on the Nustep before being noted to be extremely short of breath again. RN stopped the pt. and had him come over to sit in the chair near the nurses' station. Pt. stated that he just needed to be done for the day, which nursing staff agreed was the best plan of care for him. At 1421 on 03/27/25, pt.'s post exercise session VS were: HR: 118; O2 Sat.: 93 percent on 3L of oxygen via nasal cannula. Pt. sat with nursing staff for the remainder of his exercise session, on the hospital's oxygen tank (at 3L/min), and had a snack and a bottle of water. Pt. was then put in a wheelchair and brought to the main lobby by this RN to wait for RCT. At 1503 on 03/27/25, pt. transferred from the wheelchair to a chair in the main lobby to wait for RCT and was noted be near syncopal. Pt. swayed from side to side as he was trying to sit down in the chair. RN assisted pt. in to the chair and asked him how he was feeling. Pt. stated that he was feeling dizzy and lightheaded. Pt. stated, I feel like I've entered a different dimension. RN then noted that pt.'s bilateral hands and arms were shaking and pt. stated, I feel sort of shaky. RN moved from the chair in the main lobby to the volunteer desk, all while keeping a visual on the pt., and called upstairs for assistance from more nursing staff, including requesting a vital sign machine, while an [employer] who was nearby also kept a visual on the pt. RN immediately returned to pt. and palpated a radial pulse at 122 bpm. Within two minutes, two other RN's arrived to assist RN with continued assessment and care of the the pt. At 1505 on 03/27/25, pt. was still feeling dizzy, lightheaded, and shaky. RT arrived to help with assessment and care of the pt. at this time. Pt. was titrated from 2L to 3L of oxygen via nasal cannula. Nursing staff attempted an orthostatic BP reading. VS: HR: 122; BP: 147/80 (sitting); O2 Sat.: 88 percent on 2L. At 1506 on 03/27/25, pt. was moving from standing to sitting, as pt. was unable to tolerate a standing BP, and was noted to be swaying from side to side while standing. VS: HR: 120; BP: 131/81 (standing-sort of); O2 Sat.: 92 percent on 3L. Decision was made to bring the pt. to the ED to be assessed. This RN, another RN, and the RT accompanied the pt. to the ED, where pt. was admitted to an ED room, and this RN gave bedside report and transferred care of the pt. to Dajuan Talley RN.
== END 2025-04-01 23:59 | disposition home or self-care (01) ==
LOC: PRC 14:00
PROVIDERS: Visit Provider Internal Medicine Pulmonary Disease
DX: J47.9 Bronchiectasis, uncomplicated (principal); J44.9 Chronic obstructive pulmonary disease, unspecified; Z51.89 Encounter for other specified aftercare
CPT/HCPCS: 94626

== ENCOUNTER 2025-03-27 15:12 | Emergency (ER) | payer MEDICARE, MEDICAID, SELFPAY ==
[2025-03-27] VITALS (40 sets, daily range): BP systolic 111–159; BP diastolic 65–107; PULSE 93–138; RESP 19–36; TEMP 35.8–36.8; O2SAT 86–97
--- NOTE | 2025-03-27 15:00 | RT.EKG_ITS ---
APPROVED REPORT Exam: Resting ECG Reason for Exam: syncope Patient Location: E HR:114 bpm ECG Measurements Heart Rate [address] 208 P 74 QRSd 95 QRS 65 QT 310 T 74 QTc 427 Conclusion Sinus tachycardia...rate> [address] interval...CT >207, V-rate 91-120 Consider anteroseptal infarct...Q >30mS, dimin R, V1-V2
--- NOTE | 2025-03-27 15:30 | DI.CT_ITS ---
Exam(s) CT CHEST PE CTA EXAM: CT CHEST PE CTA CLINICAL HISTORY: dyspnea, hypoxia, lung cancer. TECHNIQUE: Imaging Protocol: Axial CT angiography was performed with multi- slice acquisition and multi-planar and/or 3D reconstructions. Lung Computer Aided Detection (CAD) was utilized. CONTRAST MATERIAL: Intravenous: Omnipaque 350 contrast volume:75 mL COMPARISON: CT CT ABDOMEN PELVIS W from 10/27/2024 FINDINGS: Tracheobronchial tree: There is mucous plugging seen in the lower lobes. There is bronchiectasis in the lower lobes. Pulmonary parenchyma: Centrilobular emphysematous changes are present. There are patchy infiltrates seen in the lungs with a tree in bud appearance. Pulmonary Arteries: There is suboptimal opacification of the peripheral pulmonary arteries. There is no evidence of a pulmonary embolism to the segmental level. Mediastinum and Krissy: No dominant adenopathy or fluid collection. There may be mild thickening of the wall of the esophagus which may be due to underdistention but esophagitis should be considered.. Visualized thyroid gland: Unremarkable. Pleura: No effusion or pneumothorax. Heart: The heart is mildly enlarged. Coronary artery calcification is present. There is no evidence of right heart strain. No pericardial effusion. Aorta: The ascending thoracic aorta measures 4.0 x 3.9 cm. No evidence of dissection. Atherosclerotic calcification is present. Upper abdomen: Unremarkable. Soft tissues: There is mild gynecomastia. Bones: Within normal limits for the patient's age.There is a sclerotic focus in the posterior aspect of the right 4th rib. IMPRESSION: 1. There is suboptimal opacification of the pulp parole pulmonary arteries. There is no evidence of a embolus to the segmental level. 2. Which infiltrates in the lungs with a tree-in-bud appearance which can represent bronchiolitis or aspiration. 3. Question of esophageal wall thickening throughout which can be seen with underdistention or esophagitis. Please correlate clinically. 4. Sclerotic focus in the posterior aspect of the right 4th rib. While this may represent a bone island, metastatic focus cannot be excluded. Please correlate clinically. 5. The preliminary [facility] report was reviewed. RADIATION DOSE DELIVERED: 83.79mGy.cm Total DLP DATA REPOSITORY: All CT scans at this facility are submitted to the National Radiology Data Registry (NRDR) Dose Index Registry (DIR) with the [employer] (A[employer]). RADIATION OPTIMIZATION: All CT scans at this facility use at least one of these dose optimization techniques: automated exposure control; mA and/or kV adjustment per patient size (includes targeted exams where dose is matched to clinical indication); or iterative reconstruction.
[2025-03-27 15:34] LABS: BE (Venous) 2 mmol/L (-2-3); HCO3 (Venous) 28 mmol/L (23-28); O2 Sat (Venous) 95 %; TCO2 (Venous) 26 mmol/L (24-29); pCO2 (Venous) 54 mmHg (41-51); pO2 (Venous) 77 mmHg
[2025-03-27 15:35] LABS: Abs Immature Grans 0.07 10^3/uL (0.0-0.06); HCT 39.0 % (40.0-50.0); HGB 12.5 g/dL (13.5-17.5); Immature Grans % 0.4 %; MCH 29.3 pg (27.0-33.0); MCHC 32.1 % (32.0-36.0); MCV 92 fL (80-95); MPV 8.3 fL (8.0-11.0); Platelet Count 350 10^3/uL (130-400); RBC 4.26 10^6/uL (4.36-5.78); RDW 15.4 % (11.8-14.1); RDW-SD 51.0 fL; WBC 16.48 10^3/uL (4.4-10.8)
--- NOTE | 2025-03-27 15:40 | W.ED.GENAD ---
Discharge Plan Disposition Patient Disposition: Home Condition: Stable Discharge Details Clinical Impression: SOB (shortness of breath), COPD exacerbation Primary Care Provider: Unknown,Unknown ED Provider: Dajuan Shultz Home Meds and New Rx's Prescriptions: New prednisone 20 mg tablet 60 mg PO DAILY 4 Days Qty: 12 0RF doxycycline hyclate 100 mg tablet 100 mg PO BID Qty: 14 0RF Continued multivitamin [Daily Multi-Vitamin] Tablet 1 tab PO DAILY quetiapine 25 mg tablet 25 mg PO DAILY carvedilol 12.5 mg tablet 12.5 mg PO BID Rx Instructions: must administer with a meal/food ipratropium-albuterol 0.5 mg-3 mg(2.5 mg base)/3 mL solution for nebulization 3 ml inhalation Q6H PRN prochlorperazine maleate [Compazine] 10 mg tablet 10 mg PO Q6H PRN lorazepam 0.5 mg tablet 0.5 mg PO DAILY PRN amlodipine 10 mg tablet 10 mg PO DAILY hydroxyzine HCl 25 mg tablet 25 mg PO TID PRN albuterol sulfate [Ventolin HFA] 90 mcg/actuation HFA aerosol inhaler 2 puff inhalation Q4H PRN food supplemt, lactose-reduced Liquid 1 ml PO BID varenicline tartrate [Chantix] 1 mg tablet 1 mg PO BID Trelegy Ellipta 200-62.5-25 mcg blister with device 1 inh inhalation DAILY prednisone 5 mg tablet 5 mg PO DAILY escitalopram oxalate 10 mg tablet 10 mg PO DAILY Epclusa 200-50 mg pellets in packet PO Ensure Plus 0.05 gram- 1.5 kcal/mL liquid 237 ml PO BID Rx Instructions: Take 237 mLs by mouth 2 times daily. Chocolate Ensure Plus-2 bottles per day ondansetron 8 mg tablet,disintegrating 8 mg PO ONCE PRN doxycycline hyclate 100 mg tablet 100 mg PO BID Qty: 14 0RF Discharge Instructions Additional Instructions: Your CAT scan did not show any evidence of pneumonia or pulmonary embolus. Continue to use your inhalers at home as needed. Follow-up with your primary care provider this week. If you feel more ill or have severe worsening shortness of breath return to the emergency department for reevaluation. Stand Alone Forms: Portal Information HPI General Date/Time Provider Initiated Documentation: 03/27/25 15:12. Limitations to Documentation: no limitations. Information obtained by: patient. History of Present Illness 69 year old M presents to the emergency department with the chief complaint of dyspnea,cough, described as moderate, Patient started experiencing this hour(s) (1) and it has been constant. No relieving factors improve symptom(s), No exacerbating factors reported . Patient notes denies chest pain. Patient did receive the following treatments prior to arrival, none Related Data Home Medications ?Medication ?Instructions ?Recorded ?Confirmed albuterol sulfate 90 mcg/actuation 2 puff inhalation Q4H PRN 10/14/24 03/27/25 aerosol inhaler (Ventolin HFA) amlodipine 10 mg tablet 10 mg PO DAILY 10/14/24 03/27/25 carvedilol 12.5 mg tablet 12.5 mg PO BID 10/14/24 03/27/25 fluticasone fur. 200 mcg-umeclid 1 inh inhalation DAILY 10/14/24 03/27/25 62.5 mcg-vilant 25 mcg inhalat.powder (Trelegy Ellipta) food supplemt, lactose-reduced 1 ml PO BID 10/14/24 03/27/25 hydroxyzine HCl 25 mg tablet 25 mg PO TID PRN 10/14/24 03/27/25 ipratropium 0.5 mg-albuterol 3 mg 3 ml inhalation Q6H PRN 10/14/24 03/27/25 (2.5 mg base)/3 mL nebulization soln lorazepam 0.5 mg tablet 0.5 mg PO DAILY PRN 10/14/24 03/27/25 multivitamin (Daily Multi-Vitamin 1 tab PO DAILY 10/14/24 03/27/25 tablet) prednisone 5 mg tablet 5 mg PO DAILY 10/14/24 03/27/25 prochlorperazine maleate 10 mg 10 mg PO Q6H PRN 10/14/24 03/27/25 tablet (Compazine) quetiapine 25 mg tablet 25 mg PO DAILY 10/14/24 03/27/25 varenicline tartrate 1 mg tablet 1 mg PO BID 10/14/24 03/27/25 (Chantix) food supplemt, lactose-reduced 237 ml PO BID 10/17/24 03/27/25 0.05 gram-1.5 kcal/mL oral liquid (Ensure Plus) doxycycline hyclate 100 mg tablet 100 mg PO BID #14 tabs 10/27/24 03/27/25 ondansetron 8 mg disintegrating 8 mg PO ONCE PRN 10/27/24 03/27/25 tablet escitalopram oxalate 10 mg tablet 10 mg PO DAILY 12/02/24 03/27/25 sofosbuvir 200 mg-velpatasvir 50 ea PO 03/03/25 03/03/25 mg oral pellets in packet (Epclusa) doxycycline hyclate 100 mg tablet 100 mg PO BID #14 tabs 03/27/25 prednisone 20 mg tablet 60 mg (3 x 20 mg) PO DAILY 4 days 03/27/25 #12 tabs Previous Rx's ?Medication ?Instructions ?Recorded doxycycline hyclate 100 mg tablet 100 mg PO BID #14 tabs 10/27/24 doxycycline hyclate 100 mg tablet 100 mg PO BID #14 tabs 03/27/25 prednisone 20 mg tablet 60 mg (3 x 20 mg) PO DAILY 4 days 03/27/25 #12 tabs Allergies Allergy/AdvReac Type Severity Reaction Status Date / Time Penicillins Allergy Severe Anaphylaxis Verified 03/03/25 14:54 Sulfa (Sulfonamide Allergy Severe Anaphylaxis Verified 03/03/25 14:54 Antibiotics) lactose Allergy NVD Verified 03/03/25 14:54 General Stated Complaint: SOB MIKAELA: 2 Review of Systems All systems reviewed & are unremarkable except as noted in HPI and below Constitutional Constitutional: Denies chills, Denies fever(s) and Denies weakness Cardiovascular Cardiovascular: Denies chest pain and Reports dyspnea Respiratory Respiratory: Reports cough and Reports dyspnea Gastrointestinal Gastrointestinal: Denies abdominal pain, Denies nausea and Denies vomiting Neurologic Neurologic: Denies weakness Exam Const General: anxious Orientation: alert [facility] Head: normal to inspection Ears: external ears normal General nose exam: external nose normal Mouth: moist mucous membranes Eyes General: appearance normal, both eyes and all related structures Neck Neck: normal visual inspection Resp Auscultation: rhonchi and wheezes Cardio Jugular venous pressure: no JVD Rate: regular rate GI Palpation: soft and nontender Skin General skin exam: no rashes or lesions noted Neuro General: patient alert and patient oriented x3 Extrem General: normal to inspection Psych Mental Status: mental status grossly normal Course Vital Signs Vital signs: Vital Signs Temperature 35.8 C L 03/27/25 15:18 Pulse 128 H 03/27/25 15:18 Respiratory Rate 30 H 03/27/25 15:18 Pulse Oximetry 94 03/27/25 15:18 Temperature 35.8 C L 03/27/25 15:18 Pulse 128 H 03/27/25 15:18 Respiratory Rate 33 H 03/27/25 15:27 Respiratory Effort Short of Breath, Labored, Accessory Muscle Use, Grunting 03/27/25 15:27 Respiratory Depth Normal 03/27/25 15:27 Respiratory Pattern Tachypnea 03/27/25 15:27 Pulse Oximetry 94 03/27/25 15:18 Oxygen Delivery Method Nasal Cannula 03/27/25 15:18 Oxygen Flow Rate 3 03/27/25 15:18 Lab/Test Results Lab/Test Results: Laboratory Tests Range/Units 03/27/25 15:20 WBC (4.4-10.8) 10^3/uL 16.48 H RBC (4.36-5.78) 10^6/uL 4.26 L Hgb (13.5-17.5) g/dL 12.5 L Hct (40.0-50.0) % 39.0 L MCV (80-95) fL 92 MCH (27.0-33.0) pg 29.3 MCHC (32.0-36.0) % 32.1 RDW (11.8-14.1) % 15.4 H Plt Count (130-400) 10^3/uL 350 MPV (8.0-11.0) fL 8.3 Immature Gran % % 0.4 Neutrophils % % 78.2 Lymphocytes % % 15.8 Monocytes % % 4.6 Eosinophils % % 0.6 Basophils % % 0.4 Nucleated RBC % (0.0-0.3) % 0.0 Absolute Neutrophils (1.2-6.7) 10^3/uL 12.89 H Absolute Lymphocytes (1.2-3.4) 10^3/uL 2.60 Absolute Monocytes (0.1-0.8) 10^3/uL 0.76 Absolute Eosinophils (0.0-0.7) 10^3/uL 0.10 Absolute Basophils (0.0-0.2) 10^3/uL 0.07 VBG pH (7.31-7.41) 7.33 VBG pCO2 (41-51) mmHg 54 H VBG pO2 mmHg 77 VBG HCO3 (23-28) mmol/L 28 VBG Total CO2 (24-29) mmol/L 26 VBG O2 Saturation % 95 VBG Base Excess (-2-3) mmol/L 2 Medical Decision Making 69-year-old male with a history of small cell lung cancer who is receiving once a month chemotherapy but states it is more for palliative at this point, COPD and continued smoker, who comes in with a cough for several days that is worsening and today after going outside in the cold to go to cardiac rehab started experiencing shortness of breath. He denies any high fevers, vomiting, chest pain. Denies abdominal pain. He is anxious on exam and speaking in 4-5 word sentences and then will have coughing fits. He has wheezing at the apices bilaterally and rhonchi at the bases bilaterally. No leg swelling or calf tenderness. Given his history and when I treated for a COPD exacerbation with IV methylprednisolone and DuoNebs. I am also checking CBC CMP and troponins. Will also obtain a CT of the chest to evaluate for PE versus infiltrates. White count came back at 16, will add on blood cultures and a lactate as well. Rest of labs reassuring against severe disease, lactate less than 4, patient is feeling significantly better. He says he wears 2 L nasal cannula at home and on this he is at 94%. CTA without evidence of PE or infiltrates. He is requesting discharge and given reassuring CT and response to treatment I feel this is reasonable. I am going to start him on prednisone burst for 4 days, will also start him on doxycycline given his increased cough. He will follow-up with his PCP and return precautions given. Differential Diagnosis Differential Diagnosis: copd exacerbation, pna, pe Medical Records Medical records reviewed: Yes I reviewed the patient's medical records. Lab Data Lab results reviewed: Yes I reviewed the patient's lab results. ECG Data Attestation: I personally reviewed and interpreted this ECG (s) as follows: Prior ECG tracings: available for review Interpretation: sinus tachycardia rate of 114 no stemi PFSH All Active Problems (Updated 03/27/25 @ 19:50 by Dajuan Shultz MD) COPD exacerbation (Acute) SOB (shortness of breath) (Acute) Other nonspecific abnormal finding of lung field (Acute) Housing insecurity (Acute) Financial insecurity (Acute) History of alcohol abuse (Acute) Hepatitis C (Chronic) Viral load > 800k July 2024 Reports partial treatment with interferon in the past COPD (chronic obstructive pulmonary disease) (Chronic) Smoker (Acute) Small cell lung cancer, right middle lobe (Acute) Dx May 2024 Medical History (Updated 03/27/25 @ 19:50 by Dajuan Shultz MD) Unilateral inguinal hernia Nondependent alcohol abuse Hyponatremia Hypertension Small cell carcinoma of hilum of right lung Protein calorie malnutrition JANI (generalized anxiety disorder) Surgical History (Updated 10/14/24 @ 08:21 by Shira Leiva) History of bronchoscopy Family History (Updated 10/14/24 @ 08:22 by Shira Leiva) Father Colorectal cancer Social History (Updated 10/14/24 @ 08:24 by Shira Leiva) Smoking/Tobacco Use Status: Former Tobacco Use tobacco type: cigarettes Quit Date: 07/21/24 Pack-years: 69 Tobacco: How many years used: 45 Smoking risk assessment performed?: Yes Alcohol Intake: former Year quit: 2024 Details: per [facility] [place] [facility] records quit recently - was at 4 cans beer/day Drug use: Daily Substance use type: marijuana Details: marijuana edibles 4x daily for pain per [facility] [place] [facility] records Do you feel safe at home: Yes Do you feel safe in your relationship?: Yes
[2025-03-27 15:48] LABS: INR 1.0 (0.9-1.1); PTT Activated 25.9 sec (20.6-30.2); Prothrombin Time 10.3 sec (9.1-11.1)
[2025-03-27 15:52] LABS: Magnesium 1.6 mg/dL (1.6-2.6)
[2025-03-27 15:53] LABS: Troponin I 9 ng/L (<54)
[2025-03-27] MEDS: Albuterol/Ipratropium 3 ML UPD VIAL UPD ×2 (15:54→16:05)
[2025-03-27 15:56] LABS: ALT 19 U/L (10-49); AST 23 U/L (<34); Albumin 4.4 g/dL (3.2-5.0); Alkaline Phosphatase 73 U/L (46-116); Anion Gap 8.4 mmol/L (3-11); BUN 8 mg/dL (9-23); Bilirubin, Total 0.2 mg/dL (0.2-1.2); CO2 28.6 mmol/L (20.0-31.0); Calcium 8.7 mg/dL (8.3-10.6); Chloride 103 mmol/L (98-107); Glucose 119 mg/dL (74-106); Potassium 3.7 mmol/L (3.5-5.1); Sodium 140 mmol/L (136-145); Total Protein 7.6 g/dL (5.7-8.2)
[2025-03-27] MEDS: methylPREDNISolone SUCC 125 MG VIAL IVP (16:05)
[2025-03-27] MEDS: Normal Saline 1,000 ML 1000 ML IV (16:06)
[2025-03-27] MEDS: LORazepam 2 MG/ML VIAL 0.5 MG IVP (16:06)
[2025-03-27 16:31] LABS: COVID-19 PCR Negative (Negative); RSV PCR Negative (Negative)
[2025-03-27 16:33] LABS: Procalcitonin < 0.10 ng/mL
[2025-03-27 16:49] LABS: Troponin I 9 ng/L (<54)
[2025-03-27] MEDS: Omnipaque 350 MG/ML 100 ML BTL IJ (17:04)
[2025-03-27] MEDS: Normal Saline - Diluent 50 ML VIAL IJ (17:04)
[2025-03-27] MEDS: Normal Saline Flush 10 ML SYR IVP (17:04)
[2025-03-27 19:11] LABS: Troponin I 10 ng/L (<54)
--- NOTE | 2025-03-27 19:14 | DI.[facility]_ITS ---
PROCEDURE INFORMATION: Exam: CTA Chest With Contrast Exam date and time: 03/27/2025 5:09 PM Age: 69 years old Clinical indication: Dyspnea and other: Dyspnea, hypoxia, lung cancer TECHNIQUE: Imaging protocol: Computed tomographic angiography of the chest with contrast. Exam focused on the arteries. 3D rendering (Not supervised by radiologist): MIP and/or 3D reconstructed images were created by the technologist. Contrast material: OMNIPAQUE 350; Contrast volume: 75 ml; Contrast route: INTRAVENOUS (IV); COMPARISON: CT ABDOMEN PELVIS W 10/27/2024 9:44 AM FINDINGS: Pulmonary arteries: Suboptimal opacification of the segmental and subsegmental pulmonary arteries. No central pulmonary thromboemboli. Aorta: Ectatic ascending thoracic aorta, 4 cm. Lungs: Upper lobe predominant paraseptal and centrilobular emphysema. Patchy subpleural reticulation in the anteromedial and posteromedial right upper lobe. Mild patchy tree-in-bud opacities throughout the lungs, predominantly deep the dependent lower lobes with bronchiectasis. Pleural spaces: Unremarkable. No pneumothorax. No pleural effusion. Heart: Unremarkable. No cardiomegaly. No pericardial effusion. Coronary arteries: Coronary artery calcification. Esophagus: Diffuse esophageal wall thickening and small hiatal hernia. Lymph nodes: No pathologic adenopathy Bones/joints: Mild degenerative changes of the spine Soft tissues: Unremarkable. Other findings: Ill-defined right hilar fullness and adjacent paramedial scarring with somewhat well-defined lateral margin, probably radiation change IMPRESSION: 1. Suboptimal opacification of the segmental and subsegmental pulmonary arteries. No central pulmonary thromboemboli. No central pulmonary thromboemboli. Segmental and subsegmental pulmonary arteries suboptimally opacified. 2. Upper lobe predominant emphysema. Multifocal tree-in-bud opacities, likely aspiration pneumonitis or respiratory bronchiolitis. 3. Subpleural scarring and reticulation, predominantly medial right upper lung zone and paramediastinal region suggestive of radiation pneumonitis 4. Diffuse esophageal wall thickening and small hiatal hernia. Correlate for esophagitis. Dictated and Authenticated by: Sruthi Short MD. Orderin Lexii Graff MD
[2025-03-27] MEDS: Doxycycline Hyclate 100 MG CAP PO (20:09)
== END 2025-03-27 19:53 | disposition home or self-care (01) ==
PROVIDERS: Emergency Provider Emergency Medicine
DX: J44.1 Chronic obstructive pulmonary disease with (acute) exacerbation (principal); R06.02 Shortness of breath
CPT/HCPCS: 99284; 99285; 36415; 96374; 96375; 71275; 80053; 82805; 84145; 87040; 87637; 93005; 96361; 83605; 83735; 83880; 84484; 85025; 85610; 85730; 93010; J2060; J2919; J3490; J7620